=== PATIENT | female | born 1995 ===

== ENCOUNTER 2016-11-20 14:23 | Emergency (ER) | payer MEDICAID ==
[2016-11-20 14:31] VITALS: BMI 49.9
[2016-11-20 14:40] VITALS: BP 115/80; PULSE 99; RESP 18; TEMP 99.4; O2SAT 100
--- NOTE | 2016-11-20 15:08 | ED PDOC ---
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 Patient stated while taking stairs at school, she missed step, causing her to fall on her left side. Denies head injury, loc, n/ v, dizziness, skin abrasion, or abnormal gait. (Morgan Padgett) Past Medical History - Provider Review Nursing Documentation Reviewed: Yes - Infectious Disease Hx of Infectious Diseases: None - Pulmonary Hx Respiratory Disorders: Yes Hx Asthma: Yes - Psychiatric Hx Substance Use: No - Anesthesia Hx Anesthesia: No Family/Social History - Physician Review Nursing Documentation Reviewed: Yes Family/Social History: Other (non-contributory) Smoking Status: Never Smoked Hx Alcohol Use: Yes Frequency of alcohol use: Socially Hx Substance Use: No Allergies/Home Meds Allergies/Adverse Reactions: Allergies No Known Allergies Allergy (Verified 11/20/16 14:30) Review of Systems - Review of Systems Constitutional: Normal. absent: Fatigue, Weight Change, Fevers, Night Sweats Eyes: Normal ENT: Normal Respiratory: Normal. absent: SOB, Cough, Sputum Cardiovascular: Normal. absent: Chest Pain, Palpitations Gastrointestinal: Normal. absent: Abdominal Pain, Nausea, Vomiting Genitourinary Female: Normal. absent: Dysuria, Frequency, Hematuria Musculoskeletal: Other (see hpi) Skin: Normal Neurological: Normal Endocrine: Normal Hemo/Lymphatic: Normal Psychiatric: Normal Physical Exam Temperature: Afebrile Blood Pressure: Normal Pulse: Regular Respiratory Rate: Normal Appearance: Positive for: Well-Appearing, Non-Toxic, Comfortable Pain Distress: None Mental Status: Positive for: Alert and Oriented X 3 - Systems Exam Head: Present: Atraumatic, Normocephalic, Other (no raccoon sign. Publications Editor lindsey sign) Pupils: Present: PERRL, Other (no hyphema) Extroacular Muscles: Present: EOMI. No: Entrapment Conjunctiva: Present: Normal Ears: Present: Normal, NORMAL TM, Normal Canal, Other (no hemotympanum). No: Erythema, TM Bulging, Fluid, TM Perf Mouth: Present: Moist Mucous Membranes Nose (External): Present: Atraumatic Nose (Internal): Present: Normal Inspection Neck: Present: Normal Range of Motion, Trachea Midline. No: Meningeal Signs, MIDLINE TENDERNESS, Paraspinal Tenderness Respiratory/Chest: Present: Clear to Auscultation, Good Air Exchange. No: Respiratory Distress, Accessory Muscle Use, Wheezes, Retracting, Tender to Palpation Cardiovascular: Present: Regular Rate and Rhythm, Normal S1, S2. No: Murmurs Abdomen: Present: Normal Bowel Sounds. No: Tenderness, Distention, Peritoneal Signs Back: Present: Normal Inspection. No: CVA Tenderness Upper Extremity: Present: Normal Inspection, Normal ROM, NORMAL PULSES, Tenderness (mild tenderness left wrist , left elbow and left anterior shoulder. No abrasion, eechymosis, or swelling), Neurovascularly Intact, Capillary Refill < 2s. No: Cyanosis, Edema Lower Extremity: Present: Normal Inspection, NORMAL PULSES, Normal ROM, Neurovascularly Intact (Mild tenderness over lateral knee), Capillary Refill < 2 s. No: Edema, Cyanosis Neurological: Present: GCS=15, CN II-XII Intact, Speech Normal, Motor Func Grossly Intact, Normal Sensory Function, Normal Cerebellar Funct, Gait Normal, Memory Normal Skin: Present: Warm, Dry, Normal Color. No: Rashes Psychiatric: Present: Alert, Oriented x 3, Normal Insight, Normal Concentration Vital Signs Temp Pulse Resp BP Pulse Ox 11/20/16 14:39 99.4 F 99 H 18 115/80 100 Medical Decision Making Re-evaluation Time: 15:58 Reassessment Condition: Re-examined, Improved - Lab Interpretations I have reviewed the lab results: Yes Interpretation: Abnormal lab values (ED urine preg was negative) ED Course and Treatment: I was available for consultation during PA evaluation. The chart was reviewed by me, and I agree with disposition. The documented history was done by the physician retail sales director. The documented physical exam was done by the physician retail sales director. The documented procedures were done by the physician retail sales director. (Roly Vizcarra) 11/20/16 15:57 Re-evaluation. Patient feels better. Discussed results and plan with patient who expresses understanding. All questions answered and there is agreement with the plan to discharge home with instructions. Patient stable for discharge. Return if symptoms persist or worsen. Patient has a normal gait. Patient was recommended to use sling and wrist brace for 5-7 days. To avoid using sling while driving, and remove brace and sling at bedtime (Morgan Padgett) - RAD Interpretation Narrative RAD Interpretations (Text): 11/20/16 16:01 Shoulder x-rays. No Fracture or dislocation elbow x-rays: No Fracture or dislocation wrist x-rays: No Fracture or dislocation knee x-rays: No Fracture or dislocation (Morgan Padgett) Radiology Orders: 11/20/16 15:01 SHOULDER LEFT [RAD] Stat 11/20/16 15:02 ELBOW LEFT 3 VIEWS ROUTINE [RAD] Stat 11/20/16 15:03 KNEE WITH PATELLA LEFT 3 VIEW [RAD] Stat WRIST, LEFT 3 VIEWS [RAD] Stat - Medication Orders Current Medication Orders: Discontinued Medications Ibuprofen (Motrin Tab) 600 mg PO STAT STA Stop: 11/20/16 15:05 Last Admin: 11/20/16 15:11 Dose: 600 mg MAR Pain/Vitals Document 11/20/16 15:11 GMD (Rec: 11/20/16 15:11 GMD [id number]) Pain Reassessment Is This A Pain ReAssessment? No Sleep Is patient sleeping during reassessment? No Presence of Pain Presence of Pain Yes Disposition/Present on Arrival - Present on Arrival Any Indicators Present on Arrival: No History of DVT/PE: No History of Uncontrolled Diabetes: No Urinary Catheter: No History of Decub. Ulcer: No History Surgical Site Infection Following: None - Disposition Have Diagnosis and Disposition been Completed?: Yes Disposition Time: 15:58 Patient Plan: Discharge - Disposition Diagnosis: Left wrist pain, Shoulder pain, Knee pain, Elbow pain Disposition: HOME/ ROUTINE Patient Problems: Current Active Problems Problem Status Onset Elbow pain Acute Knee pain Acute Left wrist pain Acute Shoulder pain Acute Condition: GOOD Discharge Instructions (ExitCare): Wrist Sprain (ED), Shoulder Sprain (ED), Knee Sprain (ED) Additional Instructions: Call private doctor for follow up visit in 1-2 days. Take medication as instructed. Apply cold compress as needed. Remove sling at bedtime, or driving. Remove wrist brace at bedtime. Return to emergency if symptoms worsen. Prescriptions: Famotidine [Pepcid] 40 mg PO DAILY #10 tablet Naproxen 500 mg PO BID PRN #14 tab PRN Reason: Pain, Severe (8-10) Referrals: Maricruz Blankenship DO [Primary Care Provider] - Follow up with primary Forms: [facility] [employer] [facility] (Turkmen), SCHOOL NOTE
--- NOTE | 2016-11-20 15:58 | RAD ---
PROCEDURE: Left Knee Radiographs. HISTORY: Pain. COMPARISON: None. FINDINGS: BONES: No evidence of acute displaced fracture nor dislocation. JOINTS: Joint spaces preserved. No significant osteoarthritis. JOINT EFFUSION: Questionable trace joint effusion OTHER FINDINGS: None. IMPRESSION: No evidence of acute displaced fracture or dislocation.
--- NOTE | 2016-11-20 16:12 | RAD ---
PROCEDURE: Radiographs of the left elbow. HISTORY: pain COMPARISON: No prior. FINDINGS: BONES: No evidence of acute displaced fracture nor dislocation. JOINTS: Normal. No osteoarthritis. SOFT TISSUES: Normal. JOINT EFFUSION: None. OTHER FINDINGS: None IMPRESSION: No evidence of acute displaced fracture dislocation.
--- NOTE | 2016-11-20 16:15 | RAD ---
PROCEDURE: Radiographs of the Left Shoulder HISTORY: pain COMPARISON: No prior. FINDINGS: BONES: Normal. No fracture. JOINTS: Normal. Glenohumeral and acromioclavicular joints preserved. No significant osteoarthritis. SOFT TISSUES: Normal. OTHER FINDINGS: None. IMPRESSION: No evidence of acute displaced fracture nor dislocation.
--- NOTE | 2016-11-20 16:16 | RAD ---
PROCEDURE: Left Wrist Radiographs. HISTORY: pain COMPARISON: None. FINDINGS: BONES: No evidence of acute displaced fracture nor dislocation. . There is a small elliptical shaped sclerotic density within the distal radius that could represent a small bone island or osteoma JOINTS: Joint spaces preserved. No significant osteoarthritis SOFT TISSUES: Normal. OTHER FINDINGS: None. IMPRESSION: No evidence of acute displaced fracture nor dislocation
== END 2016-11-20 16:07 | disposition home or self-care (01) ==
LOC: ED 14:23
DX: M25.512 Pain in left shoulder (principal); M25.532 Pain in left wrist; M25.522 Pain in left elbow; M25.562 Pain in left knee